=== PATIENT | male | born 1940 | race Caucasian/White ===

== ENCOUNTER 2022-04-14 08:04 | Inpatient (IN) | payer MEDICARE, BC ==
[2022-04-14 09:14] LABS: ESTIMATED GFR 35 mL/min (>60)
[2022-04-14] MEDS ORDERED: Sodium Chloride 0.9% 500 ML IV ONE ×2 (09:27→09:56)
[2022-04-14] MEDS ORDERED: Sodium Chloride 0.9% 500 ML IV SCH (11:00)
[2022-04-14 11:06] LABS: CORONAVIRUS COVID-19 NAA NEGATIVE (NEGATIVE)
[2022-04-14] MEDS: Sodium Chloride 0.9% 1,000 ML IV SCH (12:10)
[2022-04-14] MEDS ORDERED: Acetaminophen 325 MG Tab PO PRN (13:48)
[2022-04-14] MEDS ORDERED: oxyCODONE 5 MG Tab PO PRN (13:48)
[2022-04-14] MEDS ORDERED: Albuterol 0.083% 2.5 MG/3 ML Neb Soln NEB PRN (13:48)
[2022-04-14] MEDS ORDERED: Ondansetron 4 MG/2 ML SDV IV PRN (13:48)
[2022-04-14] MEDS ORDERED: Melatonin 3 MG Tab PO PRN (13:48)
[2022-04-14] MEDS ORDERED: Magnesium Hydroxide 400 MG/5 ML Susp 30 ML Cup PO PRN (13:48)
[2022-04-14] MEDS ORDERED: Ondansetron 4 MG Tab.DIS PO PRN (13:48)
[2022-04-14] MEDS ORDERED: Potassium Chloride 20 MEQ Tab.ER PO ONE (14:00)
[2022-04-14] MEDS: Insulin Lispro 100 Unit/ML 3 ML KwikPen SUBCUT SCH ×2 (17:49→21:38)
[2022-04-15] MEDS: Sodium Chloride 0.9% 1,000 ML IV SCH (05:22)
[2022-04-15] MEDS: Insulin Lispro 100 Unit/ML 3 ML KwikPen SUBCUT SCH ×4 (07:39→21:50)
[2022-04-15] MEDS ORDERED: Iopamidol 612 MG/ML 500 ML Multipack Bottle IV ONE (08:24)
[2022-04-15] MEDS ORDERED: Sodium Chloride 0.9% 50 ML IV SCH (08:30)
[2022-04-15] MEDS: atorvaSTATin 10 MG Tab PO SCH (08:41)
[2022-04-15] MEDS ORDERED: Bisacodyl 5 MG Tab PO ONE (14:00)
[2022-04-15] MEDS ORDERED: Polyethylene Glycol 3350 Powder 238 GM Bot PO ONE (15:00)
[2022-04-16] MEDS ORDERED: Propofol 200 MG/20 ML SDV ONE (07:08)
[2022-04-16] MEDS ORDERED: fentaNYL 50 MCG/ML SDV ONE (07:08)
[2022-04-16] MEDS: Insulin Lispro 100 Unit/ML 3 ML KwikPen SUBCUT SCH ×4 (07:49→22:41)
[2022-04-16] MEDS ORDERED: Succinylcholine 200 MG/10 ML MDV ONE (08:39)
[2022-04-16] MEDS: atorvaSTATin 10 MG Tab PO SCH (10:56)
[2022-04-16] MEDS ORDERED: Bisacodyl 5 MG Tab PO ONE (14:00)
[2022-04-16] MEDS ORDERED: Polyethylene Glycol 3350 Powder 238 GM Bot PO ONE (15:00)
[2022-04-17] MEDS ORDERED: fentaNYL 50 MCG/ML SDV ONE ×2 (06:00→06:59)
[2022-04-17] MEDS ORDERED: Propofol 200 MG/20 ML SDV ONE ×2 (06:00→06:59)
[2022-04-17] MEDS ORDERED: Sodium Phosphate,Monobasic/Sodium Phosphate,Dibasic Enema 133 ML Bottle RECTAL ONE (06:00)
[2022-04-17] MEDS: Insulin Lispro 100 Unit/ML 3 ML KwikPen SUBCUT SCH ×4 (08:00→21:34)
[2022-04-17] MEDS: atorvaSTATin 10 MG Tab PO SCH (08:01)
[2022-04-17 09:45] LABS: ESTIMATED GFR 67 mL/min (>60)
[2022-04-17] MEDS ORDERED: Magnesium Sulfate/Water 2 GM in Premix Bag 1 BAG IV SCH (12:00)
[2022-04-17] MEDS ORDERED: Potassium Chloride 20 MEQ Tab.ER PO ONE (12:15)
[2022-04-17] MEDS: Magnesium Sulfate/Water 2 GM in Premix Bag 1 BAG IV SCH ×3 (13:06→23:32)
[2022-04-17] MEDS: Lactated Ringers 1,000 ML IV SCH (21:35)
[2022-04-18] MEDS: Magnesium Sulfate/Water 2 GM in Premix Bag 1 BAG IV SCH (05:46)
[2022-04-18] MEDS: Lactated Ringers 1,000 ML IV SCH ×2 (05:46→18:41)
[2022-04-18] MEDS ORDERED: Lidocaine 1% with EPINEPHrine 1:100,000 50 ML MDV ONE ×2 (06:39→11:56)
[2022-04-18] MEDS ORDERED: Bupivacaine 0.5% 50 ML MDV ONE (06:39)
[2022-04-18] MEDS ORDERED: Meropenem 500 MG SDV ONE ×2 (06:39→11:55)
[2022-04-18] MEDS ORDERED: Potassium Chloride 10 MEQ in Premix Bag 1 BAG IV SCH (07:00)
[2022-04-18] MEDS: Potassium Chloride 10 MEQ in Premix Bag 1 BAG IV SCH ×4 (07:52→11:27)
[2022-04-18] MEDS: Insulin Lispro 100 Unit/ML 3 ML KwikPen SUBCUT SCH ×4 (07:53→21:56)
[2022-04-18] MEDS: atorvaSTATin 10 MG Tab PO SCH (09:10)
[2022-04-18] MEDS ORDERED: fentaNYL 250 MCG/5 ML SDV ONE (10:59)
[2022-04-18] MEDS ORDERED: Glycopyrrolate 0.2 MG/ML 5 ML MDV ONE (11:00)
[2022-04-18] MEDS ORDERED: cefOXitin 2 GM in Sodium Chloride 0.9% 50 ML IV ONE (11:00)
[2022-04-18] MEDS ORDERED: Rocuronium 50 MG/5 ML Vial ONE (11:00)
[2022-04-18] MEDS ORDERED: Propofol 200 MG/20 ML SDV ONE (11:00)
[2022-04-18] MEDS ORDERED: Albuterol/Ipratropium 3.0-0.5 MG/3 ML Neb Soln INH ONE (11:00)
[2022-04-18] MEDS ORDERED: Succinylcholine 200 MG/10 ML MDV ONE (11:00)
[2022-04-18] MEDS ORDERED: Dexamethasone 4 MG/ML SDV ONE (11:00)
[2022-04-18] MEDS ORDERED: Ondansetron 4 MG/2 ML SDV ONE (11:00)
[2022-04-18] MEDS ORDERED: Neostigmine Methylsulfate 1 MG/ML 5 ML Syringe ONE (11:00)
[2022-04-18] MEDS ORDERED: ePHEDrine 50 MG/ML SDV ONE (11:05)
[2022-04-18] MEDS ORDERED: Naloxone 0.4 MG/ML SDV IVPUSH PRN (11:30)
[2022-04-18] MEDS ORDERED: fentaNYL 2,500 MCG in Sodium Chloride 0.9% 200 ML EPIDUR SCH (11:30)
[2022-04-18] MEDS ORDERED: Bupivacaine 0.5% 30 ML SDV ONE (11:56)
[2022-04-18] MEDS ORDERED: Sodium Chloride 0.9% 10 ML ONE (13:02)
[2022-04-18] MEDS ORDERED: Lactated Ringers 1,000 ML ONE (13:30)
[2022-04-18] MEDS ORDERED: Dextrose 5%-Lactated Ringers 1,000 ML IV SCH (16:00)
[2022-04-18] MEDS ORDERED: Ondansetron 4 MG/2 ML SDV IV PRN (16:04)
[2022-04-18] MEDS ORDERED: hydrOXYzine HCL 100 MG/2 ML SDV IM PRN (16:12)
[2022-04-18] MEDS ORDERED: Albuterol/Ipratropium 3.0-0.5 MG/3 ML Neb Soln INH PRN (16:14)
[2022-04-18] MEDS ORDERED: diphenhydrAMINE 50 MG/ML SDV IVPUSH PRN (17:00)
[2022-04-18] MEDS: Pantoprazole 40 MG Vial IV SCH (17:25)
[2022-04-18] MEDS: cefOXitin 2 GM in Sodium Chloride 0.9% 50 ML IV SCH (17:25)
[2022-04-18] MEDS ORDERED: Lactated Ringers 500 ML IV ONE ×2 (18:00→22:41)
[2022-04-18] MEDS ORDERED: Acetaminophen 325 MG Tab PO SCH (21:00)
[2022-04-18] MEDS: Albuterol/Ipratropium 3.0-0.5 MG/3 ML Neb Soln INH SCH (21:56)
[2022-04-18] MEDS: Tamsulosin 0.4 MG Cap.ER PO SCH (22:47)
[2022-04-19] MEDS: cefOXitin 2 GM in Sodium Chloride 0.9% 50 ML IV SCH ×5 (00:26→23:58)
[2022-04-19] MEDS ORDERED: Furosemide 20 MG/2 ML VIAL IVPUSH ONE (03:09)
[2022-04-19 05:11] LABS: ESTIMATED GFR 29 mL/min (>60)
[2022-04-19] MEDS: Lactated Ringers 1,000 ML IV SCH ×3 (05:13→21:08)
[2022-04-19] MEDS: Albuterol/Ipratropium 3.0-0.5 MG/3 ML Neb Soln INH SCH ×4 (07:01→21:08)
[2022-04-19] MEDS ORDERED: fentaNYL 2,500 MCG in Sodium Chloride 0.9% 200 ML EPIDUR SCH (07:33)
[2022-04-19] MEDS: Insulin Lispro 100 Unit/ML 3 ML KwikPen SUBCUT SCH ×4 (07:35→21:18)
[2022-04-19] MEDS ORDERED: Lactated Ringers 500 ML IV SCH (07:45)
[2022-04-19] MEDS ORDERED: hydrOXYzine HCL 100 MG/2 ML SDV IM PRN (08:05)
[2022-04-19] MEDS: Naloxone 0.4 MG/ML SDV IV PRN ×3 (08:06→21:08)
[2022-04-19] MEDS: atorvaSTATin 10 MG Tab PO SCH (09:56)
[2022-04-19] MEDS: fentaNYL 1,250 MCG in Sodium Chloride 0.9% 225 ML EPIDUR SCH (10:56)
[2022-04-19] MEDS: Metoprolol Tartrate 25 MG Tab PO SCH ×2 (14:56→21:08)
[2022-04-19] MEDS: Acetaminophen 325 MG Tab PO SCH ×2 (16:47→21:09)
[2022-04-19] MEDS: Pantoprazole 40 MG Vial IV SCH (17:39)
[2022-04-19] MEDS: Tamsulosin 0.4 MG Cap.ER PO SCH (21:09)
[2022-04-20] MEDS: Metoprolol Tartrate 25 MG Tab PO SCH ×2 (02:46→10:19)
[2022-04-20] MEDS: Acetaminophen 325 MG Tab PO SCH ×4 (03:22→21:55)
[2022-04-20] MEDS: Naloxone 0.4 MG/ML SDV IV PRN (04:06)
[2022-04-20] MEDS: Lactated Ringers 1,000 ML IV SCH ×3 (04:06→20:56)
[2022-04-20] MEDS: fentaNYL 1,250 MCG in Sodium Chloride 0.9% 225 ML EPIDUR SCH (04:49)
[2022-04-20 05:09] LABS: ESTIMATED GFR 24 mL/min (>60)
[2022-04-20] MEDS ORDERED: Meropenem 500 MG SDV ONE (06:46)
[2022-04-20] MEDS ORDERED: Lidocaine 1% with EPINEPHrine 1:100,000 50 ML MDV ONE (06:47)
[2022-04-20] MEDS ORDERED: Bupivacaine 0.5% 50 ML MDV ONE (06:47)
[2022-04-20] MEDS: Albuterol/Ipratropium 3.0-0.5 MG/3 ML Neb Soln INH SCH ×4 (07:02→20:56)
[2022-04-20] MEDS ORDERED: fentaNYL 50 MCG/ML SDV ONE (07:03)
[2022-04-20] MEDS ORDERED: Propofol 200 MG/20 ML SDV ONE (07:03)
[2022-04-20] MEDS ORDERED: Ropivacaine 40 ML, dexAMETHasone 8 MG, EPINEPHrine 0.4 MG, Sodium Chloride 0.9% 37.6 ML NERVRT SCH ×4 (07:15)
[2022-04-20] MEDS ORDERED: Lactated Ringers 1,000 ML ONE (07:53)
[2022-04-20] MEDS ORDERED: Furosemide 20 MG/2 ML VIAL IVPUSH ONE (07:54)
[2022-04-20] MEDS: Metoprolol Succinate 50 MG Tab.ER PO SCH (09:27)
[2022-04-20] MEDS: Insulin Lispro 100 Unit/ML 3 ML KwikPen SUBCUT SCH ×4 (09:28→21:55)
[2022-04-20] MEDS: atorvaSTATin 10 MG Tab PO SCH (09:28)
[2022-04-20] MEDS: Magnesium Sulfate/Water 2 GM in Premix Bag 1 BAG IV SCH ×3 (10:51→20:59)
[2022-04-20] MEDS: Pantoprazole 40 MG Vial IV SCH (17:22)
[2022-04-20] MEDS: Tamsulosin 0.4 MG Cap.ER PO SCH (20:30)
[2022-04-21] MEDS: Acetaminophen 325 MG Tab PO SCH ×4 (03:20→21:20)
[2022-04-21] MEDS: Lactated Ringers 1,000 ML IV SCH ×3 (03:37→20:42)
[2022-04-21] MEDS: Magnesium Sulfate/Water 2 GM in Premix Bag 1 BAG IV SCH ×4 (03:38→21:18)
[2022-04-21 04:57] LABS: ESTIMATED GFR 24 mL/min (>60)
[2022-04-21] MEDS: Albuterol/Ipratropium 3.0-0.5 MG/3 ML Neb Soln INH SCH ×4 (07:22→20:25)
[2022-04-21] MEDS: Insulin Lispro 100 Unit/ML 3 ML KwikPen SUBCUT SCH ×4 (08:38→21:16)
[2022-04-21] MEDS: Metoprolol Succinate 50 MG Tab.ER PO SCH (08:45)
[2022-04-21] MEDS: atorvaSTATin 10 MG Tab PO SCH (08:45)
[2022-04-21] MEDS ORDERED: Furosemide 20 MG/2 ML VIAL IVPUSH ONE (09:00)
[2022-04-21] MEDS: Haloperidol Lactate 5 MG/ML SDV IVPUSH PRN ×2 (16:09→19:40)
[2022-04-21] MEDS: Pantoprazole 40 MG Tab.CR PO SCH (16:14)
[2022-04-21] MEDS: Tamsulosin 0.4 MG Cap.ER PO SCH (20:23)
[2022-04-22] MEDS: Magnesium Sulfate/Water 2 GM in Premix Bag 1 BAG IV SCH (04:09)
[2022-04-22] MEDS: Acetaminophen 325 MG Tab PO SCH ×5 (04:12→21:06)
[2022-04-22 04:53] LABS: ESTIMATED GFR 25 mL/min (>60)
[2022-04-22] MEDS: Albuterol/Ipratropium 3.0-0.5 MG/3 ML Neb Soln INH SCH ×4 (07:14→21:04)
[2022-04-22] MEDS: Lactated Ringers 1,000 ML IV SCH ×2 (07:18→17:26)
[2022-04-22] MEDS: Insulin Lispro 100 Unit/ML 3 ML KwikPen SUBCUT SCH ×4 (08:38→21:05)
[2022-04-22] MEDS: Docusate Sodium 100 MG Cap PO SCH ×2 (08:39→21:07)
[2022-04-22] MEDS: Metoprolol Succinate 50 MG Tab.ER PO SCH (08:40)
[2022-04-22] MEDS: atorvaSTATin 10 MG Tab PO SCH (08:40)
[2022-04-22] MEDS ORDERED: Furosemide 20 MG/2 ML VIAL IVPUSH SCH (09:00)
[2022-04-22] MEDS: Pantoprazole 40 MG Tab.CR PO SCH (16:28)
[2022-04-22] MEDS: Tamsulosin 0.4 MG Cap.ER PO SCH (21:07)
[2022-04-23] MEDS: Acetaminophen 325 MG Tab PO SCH ×4 (03:52→21:10)
[2022-04-23] MEDS: Lactated Ringers 1,000 ML IV SCH (03:59)
[2022-04-23 05:15] LABS: ESTIMATED GFR 26 mL/min (>60)
[2022-04-23] MEDS: Albuterol/Ipratropium 3.0-0.5 MG/3 ML Neb Soln INH SCH ×4 (07:39→21:08)
[2022-04-23] MEDS: Insulin Lispro 100 Unit/ML 3 ML KwikPen SUBCUT SCH ×4 (08:20→21:10)
[2022-04-23] MEDS: atorvaSTATin 10 MG Tab PO SCH (08:22)
[2022-04-23] MEDS: Metoprolol Succinate 50 MG Tab.ER PO SCH (08:22)
[2022-04-23] MEDS: Docusate Sodium 100 MG Cap PO SCH ×2 (08:23→21:10)
[2022-04-23] MEDS: Potassium Chloride 20 MEQ Tab.ER PO SCH ×2 (08:38→17:04)
[2022-04-23] MEDS ORDERED: Potassium Chloride 20 MEQ Tab.ER PO ONE (09:00)
[2022-04-23] MEDS ORDERED: Furosemide 20 MG Tab PO ONE (09:00)
[2022-04-23] MEDS: Pantoprazole 40 MG Tab.CR PO SCH (15:54)
[2022-04-23] MEDS: Melatonin 3 MG Tab PO PRN (21:09)
[2022-04-23] MEDS: Tamsulosin 0.4 MG Cap.ER PO SCH (21:10)
[2022-04-23] MEDS ORDERED: traMADol 50 MG Tab PO ONE (23:46)
[2022-04-24] MEDS: Acetaminophen 325 MG Tab PO SCH ×4 (03:09→21:30)
[2022-04-24] MEDS: Albuterol/Ipratropium 3.0-0.5 MG/3 ML Neb Soln INH SCH ×4 (07:29→21:28)
[2022-04-24] MEDS: Insulin Lispro 100 Unit/ML 3 ML KwikPen SUBCUT SCH ×4 (07:40→21:28)
[2022-04-24] MEDS: Potassium Chloride 20 MEQ Tab.ER PO SCH (07:41)
[2022-04-24] MEDS: glipiZIDE 5 MG Tab.ER PO SCH (08:45)
[2022-04-24] MEDS: Docusate Sodium 100 MG Cap PO SCH ×2 (08:47→21:30)
[2022-04-24] MEDS: atorvaSTATin 10 MG Tab PO SCH (08:48)
[2022-04-24] MEDS: Metoprolol Succinate 50 MG Tab.ER PO SCH (08:48)
[2022-04-24] MEDS ORDERED: Furosemide 20 MG Tab PO ONE (09:00)
[2022-04-24] MEDS ORDERED: Potassium Chloride 20 MEQ Tab.ER PO ONE (09:00)
[2022-04-24] MEDS: traMADol 50 MG Tab PO PRN (14:34)
[2022-04-24] MEDS: Pantoprazole 40 MG Tab.CR PO SCH (16:17)
[2022-04-24] MEDS: Tamsulosin 0.4 MG Cap.ER PO SCH (21:30)
[2022-04-25] MEDS: Acetaminophen 325 MG Tab PO SCH ×4 (03:32→21:10)
[2022-04-25] MEDS: traMADol 50 MG Tab PO PRN ×3 (04:17→20:51)
[2022-04-25] MEDS: Albuterol/Ipratropium 3.0-0.5 MG/3 ML Neb Soln INH SCH (06:57)
[2022-04-25] MEDS ORDERED: Terazosin 1 MG Cap PO ONE (08:00)
[2022-04-25] MEDS: glipiZIDE 5 MG Tab.ER PO SCH (08:32)
[2022-04-25] MEDS: atorvaSTATin 10 MG Tab PO SCH (08:33)
[2022-04-25] MEDS: Furosemide 20 MG Tab PO SCH ×2 (08:33→21:11)
[2022-04-25] MEDS: Tamsulosin 0.4 MG Cap.ER PO SCH ×2 (08:33→21:10)
[2022-04-25] MEDS: Metoprolol Succinate 50 MG Tab.ER PO SCH (08:35)
[2022-04-25] MEDS: Insulin Lispro 100 Unit/ML 3 ML KwikPen SUBCUT SCH ×4 (08:37→21:07)
[2022-04-25] MEDS: Pantoprazole 40 MG Tab.CR PO SCH (15:42)
[2022-04-25] MEDS ORDERED: Terazosin 1 MG Cap PO SCH (21:00)
[2022-04-26] MEDS: Melatonin 3 MG Tab PO PRN (00:35)
[2022-04-26] MEDS: traMADol 50 MG Tab PO PRN (02:34)
[2022-04-26] MEDS: Acetaminophen 325 MG Tab PO SCH ×2 (04:39→09:15)
[2022-04-26 04:48] LABS: ESTIMATED GFR 25 mL/min (>60)
[2022-04-26] MEDS: Insulin Lispro 100 Unit/ML 3 ML KwikPen SUBCUT SCH ×2 (07:48→11:57)
[2022-04-26] MEDS: Metoprolol Succinate 50 MG Tab.ER PO SCH (08:35)
[2022-04-26] MEDS: atorvaSTATin 10 MG Tab PO SCH (08:35)
[2022-04-26] MEDS: glipiZIDE 5 MG Tab.ER PO SCH (08:35)
[2022-04-26] MEDS: Tamsulosin 0.4 MG Cap.ER PO SCH (08:35)
[2022-04-26 10:46] VITALS: BP 121/62; PULSE 68
== END 2022-04-26 12:15 | DRG 330 ==
LOC: JP.ED 08:04 → JP.MS 12:05
PROVIDERS: ADMIT Internal Medicine; ATTEND Surgery
PROC: 0DBE8ZX Excision of Large Intestine, Via Natural or Artificial Opening Endoscopic, Diagnostic (ICD-10-PCS; 2022-04-17)
PROC: 0DTN0ZZ Resection of Sigmoid Colon, Open Approach (ICD-10-PCS; 2022-04-18)
PROC: 0DTP0ZZ Resection of Rectum, Open Approach (ICD-10-PCS; 2022-04-18)
PROC: 0WBF0ZZ Excision of Abdominal Wall, Open Approach (ICD-10-PCS; 2022-04-18)
PROC: 3E0M05Z Introduction of Adhesion Barrier into Peritoneal Cavity, Open Approach (ICD-10-PCS; 2022-04-18)
PROC: 0WQF0ZZ Repair Abdominal Wall, Open Approach (ICD-10-PCS; principal; 2022-04-20)
DX: K63.89 Other specified diseases of intestine (principal); N17.9 Acute kidney failure, unspecified; I95.1 Orthostatic hypotension; K56.1 Intussusception; M17.0 Bilateral primary osteoarthritis of knee; E86.0 Dehydration; R53.1 Weakness; R00.1 Bradycardia, unspecified; T50.905A Adverse effect of unspecified drugs, medicaments and biological substances, initial encounter; R63.4 Abnormal weight loss; R33.9 Retention of urine, unspecified; S50.02XA Contusion of left elbow, initial encounter; S60.512A Abrasion of left hand, initial encounter; E11.9 Type 2 diabetes mellitus without complications; M54.9 Dorsalgia, unspecified; E66.9 Obesity, unspecified; M54.2 Cervicalgia; G89.29 Other chronic pain; Z20.822 Contact with and (suspected) exposure to COVID-19; Z87.01 Personal history of pneumonia (recurrent); I12.9 Hypertensive chronic kidney disease with stage 1 through stage 4 chronic kidney disease, or unspecified chronic kidney disease; E11.22 Type 2 diabetes mellitus with diabetic chronic kidney disease; N18.30 Chronic kidney disease, stage 3 unspecified; I44.7 Left bundle-branch block, unspecified; G47.33 Obstructive sleep apnea (adult) (pediatric); Z68.26 Body mass index [BMI] 26.0-26.9, adult; Z79.899 Other long term (current) drug therapy; W18.39XA Other fall on same level, initial encounter
CPT/HCPCS: 0241U; 36415; 51701; 51702; 51798; 70450; 74177; 80048; 80053; 81001; 82378; 82947; 83735; 83880; 84100; 84443; 85025; 85027; 86850; 86900; 86901; 88305; 88309; 93005; 93010; 94640; 96360; 96361; 97110-GP; 97116-GP; 97162-GP; 97164-GP; 97165-GO; 97530-GP; 97535-GP; 99222; 99232; 99284; 99285-25; A9270-GY; C9113; J0171; J0330; J0694; J1100; J1630; J1815; J1940; J2020; J2185; J2310; J2405; J2704; J2710; J2795; J3010; J3410; J3475; J3480; J3490; J7030; J7040; J7050; J7120; J7121; J7620; Q9967

== ENCOUNTER 2022-04-29 09:17 | Emergency (ER) | payer MEDICARE, BC ==
[2022-04-29] MEDS ORDERED: Piperacillin/Tazobactam 4.5 GM in Sodium Chloride 0.9% 50 ML IV ONE (09:28)
[2022-04-29] MEDS ORDERED: Lactated Ringers 1,000 ML IV SCH (09:30)
[2022-04-29] MEDS ORDERED: Ondansetron 4 MG/2 ML SDV IVPUSH ONE (09:31)
[2022-04-29] MEDS ORDERED: fentaNYL 100 MCG/2 ML SDV IVPUSH ONE (09:31)
[2022-04-29] MEDS ORDERED: Iopamidol 612 MG/ML 100 ML Bottle IV ONE (09:36)
[2022-04-29] MEDS ORDERED: Sodium Chloride 0.9% 50 ML IV SCH (09:45)
[2022-04-29 10:11] LABS: ESTIMATED GFR 19 mL/min (>60)
[2022-04-29 11:00] LABS: CORONAVIRUS COVID-19 NAA NEGATIVE (NEGATIVE)
[2022-04-29] MEDS ORDERED: Piperacillin/Tazobactam 4.5 GM in Sodium Chloride 0.9% 100 ML IV ONE (11:00)
[2022-04-29] MEDS ORDERED: Lactated Ringers 1,000 ML IV ONE (11:13)
[2022-04-29] MEDS ORDERED: Vancomycin 1.75 GM in Sodium Chloride 0.9% 500 ML IV ONE (11:30)
[2022-04-29] MEDS ORDERED: HYDROmorphone 1 MG/ML Syringe IVPUSH ONE (11:50)
[2022-04-29] MEDS ORDERED: Norepinephrine Bit/D5W Premix 4 MG in Premix Bag 1 BAG IV SCH (13:00)
== END 2022-04-29 15:58 ==
LOC: JP.ED 09:17
DX: A41.9 Sepsis, unspecified organism (principal); R65.21 Severe sepsis with septic shock; N17.9 Acute kidney failure, unspecified; I10 Essential (primary) hypertension; E11.9 Type 2 diabetes mellitus without complications; E66.9 Obesity, unspecified; Z68.28 Body mass index [BMI] 28.0-28.9, adult; Z79.899 Other long term (current) drug therapy; Z90.49 Acquired absence of other specified parts of digestive tract; Z20.822 Contact with and (suspected) exposure to COVID-19
CPT/HCPCS: 0241U; 36415; 43752; 74176; 74176-26; 80053; 83605; 84145; 85025; 86140; 87040; 96361; 96365; 96366; 96367; 96375; 99285; 99285-25; J1170; J2405; J2543; J3010; J3370; J7040; J7120; Q9967